=== PATIENT | male | born 1950 | race Caucasian/White ===

== ENCOUNTER 2020-02-29 10:55 | Day surgery (SDC) | payer MEDICARE, OTHER ==
[~2020-02-29] VITALS: Ht 180.3 cm; Wt 120.1 kg
[~2020-02-29 10:55] MED LIST: LISI10TA2 PO; TMSL.4C PO
--- NOTE | 2020-02-29 10:59 | Progress Note-Pre Operative ---
Pre-Operative Progress Note H&P Reviewed The H&P was reviewed, patient examined and no changes noted. Date Seen by Provider: Feb 29, 2020 Time Seen by Provider: 10:30 Date H&P Reviewed: Feb 29, 2020 Time H&P Reviewed: 10:30 Pre-Operative Diagnosis: screening JIMMY Meier MD Feb 29, 2020 10:59
[2020-02-29] MEDS ORDERED: ONDANSETRON 4 MG/2 ML (SDV) Z0FRAN IVP PRN (11:00)
[2020-02-29] MEDS ORDERED: ACETAMINOPHEN 325 MG TABLET PO PRN (11:00)
[2020-02-29] MEDS ORDERED: HYDROcodone/APAP 5 MG/325 MG (LORTAB) TAB PO PRN (11:00)
[2020-02-29] MEDS ORDERED: morphine INJ 10 MG/ML 1ML (SYR OR VIAL) IVP PRN ×2 (11:00)
--- NOTE | 2020-02-29 11:00 | Discharge Inst-Surgical ---
D/C Lap Instructions-RENAY Follow Up Activity as tolerated High Fiber Diet 25g or more per day Avoid Alcohol, Caffeine, Spicy [place] and Acid foods. Drink 64 fluid oz or more of fluids per day. Symptoms to Report: Fever over 101 degree F, Nausea/Vomiting If any problems/questions: Contact your physician or go to Emergency Room JIMMY NIÑO MD Feb 29, 2020 11:00
[2020-02-29] MEDS ORDERED: LACTATED RINGERS 1,000 ML IV ONE (11:03)
[2020-02-29] MEDS ORDERED: PROPOFOL INJECTION 50 ML IV ONE (11:26)
[2020-02-29] MEDS ORDERED: MIDAZOLAM 2 MG/2 ML (VERSED) VIAL ONE (11:29)
[2020-02-29] MEDS ORDERED: LACTATED RINGERS 1,000 ML IV STA (11:33)
[2020-02-29 11:43] VITALS: BP 139/68
[2020-02-29] MEDS ORDERED: LIDOCAINE JELLY 2% 6 ML SYRINGE MM PRN (11:45)
[2020-02-29] MEDS ORDERED: LIDOCAINE JELLY 2% 6 ML SYRINGE ONE (11:46)
[2020-02-29 12:08] VITALS: BP 130/78
[2020-02-29 12:13] VITALS: BP 132/79
--- NOTE | 2020-02-29 12:19 | Progress Note-Post Operative ---
Post-Operative Progess Note Surgeon (s)/Military Pay Clerk (s) Surgeon JIMMY NIÑO MD Military Pay Clerk: none Pre-Operative Diagnosis screening colo Post-Operative Diagnosis mild chronic stage 2 ext and int hemorrhoids. Procedure & Operative Findings Date of Procedure 02/29/20 Procedure Performed/Findings Colonoscopy Anesthesia Type mac Estimated Blood Loss Estimated blood loss (mL): minimal Specimens/Packing Specimens Removed none JIMMY NIÑO MD Feb 29, 2020 12:19
[2020-02-29 12:20] VITALS: BP 136/80
[2020-02-29 12:50] VITALS: BP 129/63
[2020-02-29 13:00] VITALS: BP 129/63
--- NOTE | 2020-02-29 20:38 | OPERATIVE REPORT ---
DATE OF SERVICE: 02/29/2020 ATTENDING PRIMARY CARE PHYSICIAN: Dr. Wade Ryan. PREOPERATIVE DIAGNOSES: Change in bowel habits with diarrhea and constipation, screening colonoscopy. POSTOPERATIVE DIAGNOSIS: Mild chronic stage II external and internal hemorrhoids. PROCEDURE: Colonoscopy. SURGEON: Jimmy Niño MD ANESTHESIA: Monitored anesthesia care. ESTIMATED BLOOD LOSS: Minimal. FINDINGS: Mild chronic stage II external and internal hemorrhoids. DISPOSITION: The patient tolerated the procedure well. INDICATIONS: The patient is a 70-year-old male in need of a screening colonoscopy. He reports his last colonoscopy was approximately 10 to 15 years ago and does not remember any abnormalities. He does report in the past four months, he has had intermittent episodes of diarrhea and constipation. He does not report any change in water source as well as no change in diet. He does not report any red blood per rectum nor any dark tarry stools as well as any inadvertent weight loss as well. He also does not report any family history of colon cancer. DESCRIPTION OF PROCEDURE: The patient was brought to the endoscopy suite, laid in the left lateral decubitus position. After adequate IV pain and sedated medications and monitored anesthesia care, digital rectal examination was performed. Mild chronic stage II external and internal hemorrhoids were identified, which were not actively edematous nor inflamed and no bleeding. Normal sphincter tone was felt and there were no palpable masses. Prostate gland was palpable and appeared normal. The endoscope was then intubated to the anus and rectum gently insufflated. The endoscope was then advanced through the valves of Rubio of the rectum with no polyps or any neoplasms identified. Through the sigmoid colon, no diverticulosis identified. The endoscope was then advanced to the remainder of the descending, transverse and ascending colon to the cecum. These segments were normal. There were no polyps or any neoplasms identified throughout the colon or rectum. The endoscope was then slowly withdrawn while taking a second look and suctioning of residual air with no additional findings. The patient tolerated the procedure well. We will recommend the necessary lifestyle and diet accommodation including incorporation of a high fiber diet through supplemental means to equal or exceed 30 grams daily as well as significant amounts of water to promote soft stools on a daily basis. If he does have continued episodes of diarrhea and constipation, this may be related to an upper gastrointestinal source including gastritis; however, we also cannot rule out gallbladder as an etiology and we will proceed with further testing. Job ID: [id number] DocumentID: [id number] Dictated Date: 02/29/2020 12:15:55 Weed Cooking Operator Date: 02/29/2020 20:38:00 Dictated By: JIMMY NIÑO MD
--- NOTE | 2020-03-05 12:51 | Anesthesia-General Post-Op ---
MAC Patient Condition Mental Status/LOC: Same as Preop Cardiovascular: Satisfactory Nausea/Vomiting: Absent Respiratory: Satisfactory Pain: Controlled Complications: Absent Post Op Complications Complications None Follow Up Care/Instructions Patient Instructions None needed. Anesthesiology Discharge Order Discharge Order Patient is doing well, no complaints, stable vital signs, no apparent adverse anesthesia problems. No complications reported per nursing. RUTH YEE CRNA Mar 05, 2020 12:51
== END 2020-02-29 13:00 | disposition home or self-care (01) ==
LOC: ENDO 10:55
PROVIDERS: ATTEND Surgery
DX: K64.1 Second degree hemorrhoids (principal); R19.7 Diarrhea, unspecified; K59.00 Constipation, unspecified; I10 Essential (primary) hypertension; N40.0 Benign prostatic hyperplasia without lower urinary tract symptoms; Z79.899 Other long term (current) drug therapy; Z86.010 Personal history of colon polyps

== ENCOUNTER → 2022-12-30 | Outpatient (CLI) | payer MEDICARE, OTHER ==
[~2022-12-30] MED LIST changes: -LISI10TA2 PO; +LISI10TA25 PO
--- NOTE | 2022-12-30 10:27 | Diagnostic Imaging Report ---
PROCEDURE: MRI lumbar spine. TECHNIQUE: Multiplanar, multisequence MRI of the lumbar spine was performed without contrast. INDICATION: Spinal pain, symptoms progressive over the past 2 weeks. Multiple multisequence lumbar MRI performed, images extend through the T11 superior endplate. Vertebral statures normal, the alignment anatomic. The lower cord and conus appeared normal. There is a normal dispersal of the nerves of the cauda equina. There is no paravertebral mass, hemorrhage or fluid collection. No suspicious marrow edema. There is some very slight degenerative endplate edematous changes anteriorly at the L2 superior endplate eccentric to the right. No fracture. T12-L1: Osteophyte disc material anteriorly results in no stenosis. L1-L2: Mild anterior greater than posterior osteophyte disc material results in no stenosis. L2-L3: Ligamentum flavum thickening and facet arthrosis with disc bulge and endplate osteophytes result in mild canal stenosis. There is mild right and minimal left neural foraminal narrowing. L3-L4: Thickened ligament flava, facet arthrosis, disc bulge, endplate osteophytes and prominence of the dorsal epidural fat result in a moderate degree of canal stenosis. There is mild to moderate right and mild left neural foraminal stenoses. L4-L5: Some prominence of the dorsal epidural fat, thickened ligamenta flava and facet arthrosis with mild disc bulge resulting in a moderate severity of canal stenosis. There is mild biforaminal narrowing. L5-S1: This is slight disc bulge and endplate osteophytes with very mild biforaminal narrowing greater right. No substantial canal or recess stenosis. IMPRESSION: 1. Degenerative changes aligned anatomically with no acute bony pathology with multilevel mild to moderate canal and foraminal stenoses. No acute-appearing pathology. Dictated by: Dictated on workstation # [id number]
== END ==
LOC: RAD 08:53
PROVIDERS: ATTEND Family Medicine
DX: M47.26 Other spondylosis with radiculopathy, lumbar region (principal); M48.061 Spinal stenosis, lumbar region without neurogenic claudication
CPT/HCPCS: 72148